=== PATIENT | male | born 1980 | race Caucasian/White ===

== ENCOUNTER 2024-06-05 21:12 | Emergency (ER) | payer OTHER, SELFPAY ==
[2024-06-05 21:13] VITALS: BP 152/107; PULSE 133; RESP 18; TEMP 36.4; O2SAT 95; BMI 28.6
--- NOTE | 2024-06-05 21:57 | CT_ITS ---
INDICATION: trauma EXAMINATION: CT FACIAL BONES - CT Maxillofacial W/O Contrast Injection TECHNIQUE: Helically acquired images were obtained of the facial bones. A radiation dose optimization technique was used for this scan. The protocol utilizes one or more of the following dose reduction techniques: automated exposure control, adjustment of mA and/or kV according to patient size,and/or use of iterative reconstruction technique. IV Contrast dosage and agent: None. RADIATION DOSAGE (If Supplied By Facility): CTDIvol = ( 29.38 ) mGy, DLP = ( 716.41 ) mGycm COMPARISON: No relevant prior comparison study available FINDINGS: ORBITS: No fracture demonstrated. Globes appear intact. No retrobulbar hematoma. NASAL BONES: Bilateral nasal bone fractures, minimally depressed on the left. The left nasal passage is partially obstructed by the minimally depressed fracture, leftward septal deviation, and soft tissue thickening, edema and/or hematoma. NASOETHMOID COMPLEX: Unremarkable. ZYGOMATIC ARCHES: Unremarkable. MAXILLAE: Unremarkable. PTERYGOID PLATES: Unremarkable. MANDIBLE: No fracture demonstrated. No dislocation at the temporomandibular joints. SINUSES: Minimal mucosal thickening in the maxillary sinuses. SOFT TISSUES: Swelling over the nose and presumed laceration. OTHER: None. CT/Sinus/Facial Bone IMPRESSION: Nasal bone fractures. Electronically Signed: Gavi Hernandez MD at 23:11 EDT ,
--- NOTE | 2024-06-05 21:58 | EX.ED.GENINJ ---
HPI History of Present Illness Chief Complaint: Laceration Narrative Narrative: 43-year-old male who denies significant past medical history presents with laceration to his nose that happened at around 8:45 PM, just over an hour ago. He was mowing the grass, and wanted to do 1 last thing. He tried to remove a tomato stake from the ground, when it snapped and broke. The piece that he was holding in his hand hit him in the nose causing a laceration that will not stop bleeding. He is unsure of his last tetanus immunization. He denies loss of consciousness, no other injury. He does not take blood thinners. PFSH PFSH Home Medications ?Medication ?Instructions ?Recorded ?Last Taken ?Type amoxicillin 875 mg-potassium 1 tab PO BID #20 tabs 06/05/24 Unknown Rx clavulanate 125 mg tablet oxycodone-acetaminophen 5 mg-325 1 tab PO Q8H PRN pain 3 days #12 06/05/24 Unknown Rx mg tablet (Percocet) tabs Allergy/AdvReac Type Severity Reaction Status Date / Time No Known Allergies Allergy Verified 06/05/24 21:15 Social History Smoking Status: Never smoker ROS ROS ED ROS Narrative Focused review of systems is positive for laceration to the nose. No loss of consciousness, no headache. No neck pain. EXAM Physical Exam Narrative Exam Narrative: GCS 15. ABCs intact. Inspection of the nose does show a 3.5 cm irregularly shaped laceration to his nose. There is dried blood in both nares, but no evidence of septal hematoma. PERRL, EOMI. Neck soft and supple. Cardiovascular examination reveals a regular rate and rhythm with intermittent tachycardia, lungs clear to auscultation bilaterally. Abdomen soft nontender with normoactive bowel sounds. Neurological examination is nonfocal and nonlateralizing, awake, alert, and oriented. Const Vital Signs: 06/05/24 21:13 06/05/24 23:52 06/05/24 23:53 Temperature 97.6 F L 97.9 F Temperature Source Temporal Pulse Rate 133 H 100 Respiratory Rate 18 18 18 Blood Pressure 152/107 H 142/90 H Blood Pressure Mean 122 107 Pulse Ox 95 96 Oxygen Delivery Method Room Air MDM MDM MDM Narrative Medical decision making narrative: Concern is for laceration versus open fracture of the nose. He does have diffuse tenderness. His tetanus immunization will be updated. He was given oxycodone 5 mg orally for analgesia. He was told of the risk of infection and scarring and acknowledges an understanding. Procedure note: Patient was prepped and draped in usual sterile fashion. His wound was cleansed with Shur-Clens and normal saline moderate amount. A total of 8 simple interrupted sutures using 5 point 0 Ethilon were used for good skin approximation. Patient tolerated procedure well. He was told to have the sutures removed in 5 to 7 days. I reviewed the radiology report of the CT of the facial bones and there are nasal bone fractures. This will be treated as an open fracture. After he cleared a few clots from his nose, I reinspected his left nares and there is no rapidly expanding septal hematoma. CT report did comment on bilateral nasal fractures with mild depression of the left nasal bone fracture with edema. I discussed follow-up with the patient and his . They were referred to otolaryngology. I did offer to call trauma services, but they prefer follow-up locally. They were told that they may need follow-up with plastic surgery. He was given his first dose of Augmentin here and I wrote him a prescription for 10 days, and additionally I wrote him a prescription for narcotic pain medication. I feel he can be discharged to follow-up. Patient and are agreeable to the plan. Disposition is discharged home in stable condition. Return instructions to the emergency department were reviewed. History & Record Review Discussion w/independent historian: Patient and Family Radiography Diagnostic Testing: Clinical Impression(s) from Imaging Studies Facial/Sinus 06/05/24 21:57 IMPRESSION: Nasal bone fractures. Electronically Signed: Gavi Hernandez MD at 23:11 EDT , Discharge Plan Triage Chief Complaint: Laceration ED Provider: Dominick Domínguez Dx/Rx/DC Orders Clinical Impression: Open nasal fracture Instructions: ED Nose Fracture, with X-Ray, ED Laceration, All Closures Prescriptions: New oxycodone-acetaminophen [Percocet] 5-325 mg tablet 1 tab PO Q8H PRN (Reason: pain) 3 Days Qty: 12 0RF amoxicillin-pot clavulanate 875-125 mg tablet 1 tab PO BID Qty: 20 0RF Primary Care Provider: Care Physician,No Primary Referrals: Tray Freeman MD [Med Staff - Active Staff] - 3-5 Days Rocael Nuno MD [STAFF PHYSICIAN] - Activity Restrictions/Additional Instructions: Call tomorrow for an appointment to be seen by ENT for your open nasal fracture. You may need referral to plastics instead. Return with new or worsening symptoms. Sutures Truberzi removed in 5 to 7 days, or instructed by otolaryngology versus plastic surgery. Print Language: Occitan Disposition Disposition: Home, Self Care Discharge Date/Time: 06/05/24 23:53
[2024-06-05] MEDS: oxyCODONE 5 MG Tablet PO (22:27)
[2024-06-05] MEDS: Diphth,Pertuss(Acell),Tet Vac 0.5 ML Vial IM (22:28)
[2024-06-05] MEDS: Lidocaine 1% (20 ml mdv) 20 ML Vial INFILT (22:30)
[2024-06-05] MEDS: Amox/Clavulanate 875 MG Tablet PO (23:46)
[2024-06-05 23:52] VITALS: RESP 18
[2024-06-05 23:53] VITALS: BP 142/90; PULSE 100; RESP 18; TEMP 36.6; O2SAT 96
== END 2024-06-05 23:53 | disposition home or self-care (01) ==
PROVIDERS: Emergency Provider Emergency Medicine; Visit Provider Emergency Medicine
DX: S02.2XXB Fracture of nasal bones, initial encounter for open fracture (principal); W20.8XXA Other cause of strike by thrown, projected or falling object, initial encounter; Y93.H9 Activity, other involving exterior property and land maintenance, building and construction; Z23 Encounter for immunization
CPT/HCPCS: 12013; 70486; 90471; 90715; 99283